=== PATIENT | female | born 1960 ===

== ENCOUNTER 2025-04-24 09:56 | Outpatient (AMB) | payer BC, SELFPAY ==
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
--- OUTSIDE RECORDS SUMMARY | 2025-04-24 10:25 | XMS_ITS | Encounter Summary ---
Author Organization [facility] Address [address] [place] [address] Care Team Providers Care Blue Prints Trimmer Name Role Phone Bambi Alba Primary Care Provider [phone] Encounter Details Date Type Department Care Team (Late Contact Info) Description 04/19/2025 Orders Only [facility] [address] [place] [address] Loraine Alvarado, QUINTON [address] [place], [place] [id number] Social History Tobacco Use Types Packs/Day Years Used Date Smoking Tobacco: Never Smokeless Tobacco: Never Comments Unknown Sex and Gender Information Value Date Recorded Sex Assigned at Female 09/27/2023 1:14 PM EST Legal Sex Female 1:28 PM EDT Gender Identity Not on file Sexual Orientation Heterosexual (straight) 09/27 1:14 PM EST documented as of this encounter Plan of Treatment Upcoming Encounters Date Type Department Care Team (Late st Contact Info) Description 06/26/2025 7:30 AM EDT Office Visit [facility] [address] [phone] Neo Noriega MD [address] [place] [phone] documented as of this encounter Procedures Procedure Name Priority Date/Time Associated Diagnosis Comments MG JASWINDER- SCREENING IMPLANTS- BILATERAL Routine 04/19/2025 3:32 PM EDT documented in this encounter Results * MG JASWINDER- SCREENING IMPLANTS- BILATERAL (04/19/2025 3:32 PM EDT) Anatomical Region Laterality Modality Other 04/19/2025 3:00 PM EDT 04/19/2025 3:00 PM EDT Narrative 04/23/2025 1:46 PM EDT HISTORY: Patient is 64 years old and is seen for screening. The patient has a history of right needle biopsy in 2021 - benign and right needle biopsy in 2018 - benign. The patient has no personal history of ovarian cancer. The patient has no family history of breast cancer. FILMS COMPARED: The present examination has been compared to prior imaging studies dated 11/18/2021, 11/25/2021, 01/22/2023 and 03/03/2024. JASWINDER STATEMENT: Computer-aided detection was utilized by the radiologist in the interpretation of this examination. 3D tomosynthesis digital mammographic images were obtained using displaced views. 2D digital mammographic image(s) were obtained using non-displaced views. MAMMOGRAM FINDINGS: The breasts are heterogeneously dense, which may obscure small masses. (ACR BIRADS density Category c) * There are bilateral pre-pectoral saline implants. Presence of implants lowers the sensitivity of mammography. There are no suspicious mass, calcifications, or architectural distortion in either breast. IMPRESSION: There is no mammographic evidence of malignancy. Routine follow-up mammogram in 1 year is recommended. The patient will receive a lay summary of the results of this breast imaging exam. Lay summaries for mammography examinations will also identify the patients personal breast tissue composition as required by state law. BIRADS Category 2: Benign Thank you for referring your patient to us, Emerson Nguyen MD [id number] (Electronically Signed - 04/23/2025 13:46) Procedure Note Emerson Nguyen MD - 04/23/2025 HISTORY: Patient is 64 years old and is seen for screening. The patient has a history of right needle biopsy in 2021 - benign andright needle biopsy in 2018 - benign. The patient has no personal historyof ovarian cancer. The patient has no family history of breast cancer. FILMS COMPARED: The present examination has been compared to prior imaging studies dated11/18/2021, 11/25/2021, 01/22/2023 and 03/03/2024. JASWINDER STATEMENT: Computer-aided detection was utilized by the radiologist in theinterpretation of this examination. 3D tomosynthesis digital mammographic images were obtained using displacedviews. 2D digital mammographic image(s) were obtained using non-displacedviews. MAMMOGRAM FINDINGS: The breasts are heterogeneously dense, which may obscure small masses.(ACR BIRADS density Category c) * There are bilateral pre-pectoral saline implants. Presence of implants lowers the sensitivity of mammography. There are nosuspicious mass, calcifications, or architectural distortion in eitherbreast. IMPRESSION: There is no mammographic evidence of malignancy. Routine follow-up mammogram in 1 year is recommended. The patient will receive a lay summary of the results of this breastimaging exam. Lay summaries for mammography examinations will alsoidentify the patients personal breast tissue composition as required bystate law. BIRADS Category 2: Benign Thank you for referring your patient to us, Emerson Nguyen MD [phone] (Electronically Signed - 04/23/2025 13:46) Loraine Alvarado CNM IMG LEGACY PROCEDURES Final Resu lt documented in this encounter Visit Diagnoses Not on filedocumented in this encounter Care Teams Blue Prints Trimmer Relationship Specialty Start Date End Date Bambi Alba PA PCP - General 01/21/23 documented as of this encounter
--- OUTSIDE RECORDS SUMMARY | 2025-04-24 10:25 | XMS_ITS | Encounter Summary ---
Author Organization [facility] Address [address] [place] [address] Care Team Providers Care Porter Bath Name Role Phone Bambi Alba Primary Care Provider Reason for Visit * Reason Onset Date Comments echo results 04/09/2025 Encounter Details Date Type Department Care Team ([facility] st Contact Info) Description 04/09/2025 Telephone [facility] [place] [address] [phone] Sheela Lopez LPN echo results Social History Tobacco Use Types Packs/Day Years Used Date Smoking Tobacco: Never Smokeless Tobacco: Never Alcohol Use Standard Drinks/Week Comments Yes 0 (1 standard drink = 0.6 oz pur e alcohol) Comments Unknown Sex and Gender Information Value Date Recorded Sex Assigned at Not on file Legal Sex Female 6:46 AM EST Gender Identity Not on file Sexual Orientation Not on file documented as of this encounter Progress Notes * Sheela Lopez LPN - 04/09/2025 11:33 AM EDT Patient notified * Charli Alexander MD - 04/09/2025 11:15 AM EDT Let her know echo still shows which is still mild to moderate Heart fxn normal No changes needed Make sure she has f/u ov for later in year Charli Alexander MD [facility] 04/09/2025 11:16 AM EDT Office [phone] * Sheela Loepz LPN - 04/09/2025 10:47 AM EDT Patient called looking for echo results from last week. I see them scanned in Epic. Please advise. documented in this encounter Plan of Treatment Upcoming Encounters Date Type Department Care Team (Late st Contact Info) Description 12/13/2025 1:00 PM EDT Office Visit [facility] [place] [address] [facility] [address] [place] [phone] Charli Alexander MD [address] [facility] [address] [place] [address] documented as of this encounter Visit Diagnoses Not on filedocumented in this encounter Care Teams Porter Bath Relationship Specialty Start Date End Date Bambi Alba PA PCP - General Physician Extrusion Machine Operator 05/05/16 documented as of this encounter
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
--- OUTSIDE RECORDS SUMMARY | 2025-04-24 10:25 | XMS_ITS ---
Author Name [facility] Organization Unknown Results Test Name/Text Value Interpretation Date Range Source Est. average glucose Bld gHb Est-sCnc 6.5 mmol/L 02/24/2025 [facility] HbA1c MFr Bld 5.7 % Above high normal 02/24/2025 - 5.7 [facility] Est. average glucose Bld gHb Est-mCnc 117.0 mg/dL 02/24/2025 [facility] ESR RBC Qn Westrgrn 2.0 mm/h Normal 02/24/2025 - [facility] NonHDLc SerPl-mCnc 144.0 mg/dL (calc) Above high normal 02/24/2025 - 130 [facility] Cholest SerPl-mCnc 219.0 mg/dL Above high normal 02/24/2025 - 200 [facility] HDLc SerPl-mCnc 75.0 mg/dL Normal 02/24/2025 - [facility] EST Trigl SerPl-mCnc 110.0 mg/dL Normal 02/24/2025 - 150 [facility] Cholest/HDLc SerPl 2.9 (calc) Normal 02/24/2025 - 5 [facility] LDLc SerPl Calc-mCnc 122.0 mg/dL (calc) Above high normal 02/24/2025 [facility] CRP SerPl-mCnc 10.2 mg/L Above high normal 02/24/2025 - 8 [facility] Albumin SerPl-mCnc 4.2 g/dL Normal 02/24/2025 3.6 - 5.1 [facility] Creat SerPl-mCnc 0.77 mg/dL Normal 02/24/2025 0.5 - 1.05 [facility] Bilirub SerPl-mCnc 0.6 mg/dL Normal 02/24/2025 0.2 - 1.2 [facility] ALT SerPl-cCnc 14.0 U/L Normal 02/24/2025 6 - 29 [facility] Glucose SerPl-mCnc 134.0 mg/dL Above high normal 02/24/2025 65 - 99 [facility] Sodium SerPl-sCnc 139.0 mmol/L Normal 02/24/2025 135 - 14 6 [facility] Chloride SerPl-sCnc 103.0 mmol/L Normal 02/24/2025 98 - 1 10 [facility] Potassium SerPl-sCnc 4.2 mmol/L Normal 02/24/2025 3.5 - 5 .3 [facility] Globulin Ser Calc-mCnc 2.6 g/dL (calc) Normal 02/24/2025 1.9 - 3.7 [facility] ALP SerPl-cCnc 81.0 U/L Normal 02/24/2025 37 - 153 [facility] Albumin/Glob SerPl 1.6 (calc) Normal 02/24/2025 1 - 2.5 [facility] CO2 SerPl-sCnc 27.0 mmol/L Normal 02/24/2025 20 - 32 [facility] BUN/Creat SerPl SEE NOTE: 02/24/2025 6 - [address] eGFRcr SerPlBld CKD-EPI 2020 87.0 mL/min/1.73m2 Normal 02/24/2025 - [facility] BUN SerPl-mCnc 16.0 mg/dL Normal 02/24/2025 7 - [address] Calcium SerPl-mCnc 9.6 mg/dL Normal 02/24/2025 8.6 - 10.4 [facility] AST SerPl-cCnc 14.0 U/L Normal 02/24/2025 10 - 35 [facility] T Prot SerPl-mCnc 6.8 g/dL Normal 02/24/2025 6.1 - 8.[address] TSH SerPl-aCnc 1.63 mIU/L Normal 02/24/2025 0.4 - 4.[address] Urate SerPl-mCnc 6.3 mg/dL Normal 02/24/2025 2.5 - 7 [facility] 25(OH)D3+25(OH)D2 SerPl-mCnc 50.0 ng/mL Normal 02/24/2025 30 - 100 [facility] C3 SerPl-mCnc 157.0 mg/dL 02/24/2025 83 - [address] dsDNA Ab Ser Ql CHERRY NEGATIVE 02/24/2025 - [facility] Cardiolipin IgG Ser IA-aCnc <2.0 02/24/2025 [facility] CLAY Ser Ql IF NEGATIVE 02/24/2025 - [facility] RF IgG Ser-aCnc <5 02/24/[address] B2 Glycoprot1 IgM Ser-aCnc <2.0 02/24/2025 [facility] CECI SM Ab Ser IA-aCnc <1.0 NEG 02/24/2025 - [facility] C4 SerPl-mCnc 28.0 mg/dL 02/24/2025 15 - 57 [facility] CECI SM+COMPUTER LABORATORY TECHNICIAN Ab Ser IA-aCnc <1.0 NEG 02/24/2025 - [facility] B2 Glycoprot1 IgG Ser-aCnc <2.0 02/24/2025 [facility] CECI COMPUTER LABORATORY TECHNICIAN Ab Ser-aCnc <1.0 NEG 02/24/2025 - [facility] Nucleosome Ab Ser IA-aCnc <1.0 NEG 02/24/2025 - [facility] RF IgM Ser-aCnc <5 02/24/[address] RF IgA Ser-aCnc <5 02/24/[address] CECI SS-A Ab Ser IA-aCnc <1.0 NEG 02/24/2025 - [facility] Centromere B Ab Ser-aCnc <1.0 NEG 02/24/2025 - [facility] CECI SS-B Ab Ser IA-aCnc <1.0 NEG 02/24/2025 - [facility] cCP IgG SerPl-aCnc <16 02/24/2025 [facility] B2 Glycoprot1 IgA Ser-aCnc <2.0 02/24/2025 [facility] Cardiolipin IgA Ser IA-aCnc <2.0 02/24/2025 [facility] Mut cit vimentin Ab Ser-aCnc <20 02/24/2025 - 20 [facility] CECI Jo1 Ab Ser IA-aCnc <1.0 NEG 02/24/2025 - [facility] CECI Scl70 Ab Ser IA-aCnc <1.0 NEG 02/24/2025 - [facility] Cardiolipin IgM Ser IA-aCnc <2.0 02/24/2025 [facility] Thyroperoxidase Ab SerPl-aCnc 4.0 IU/mL 02/24/2025 - 9 [facility] RDW RBC Auto 12.4 % Normal 02/24/2025 11 - 15 [facility] Hct VFr Bld Auto 44.1 % Normal 02/24/2025 35 - 45 [facility] Neutrophils # Bld Auto 4414.0 cells/uL Normal 02/24/2025 1500 - 7800 [facility] PMV Bld Abhinav-Trip 10.1 fL Normal 02/24/2025 7.5 - 12.5 [facility] Monocytes # Bld Auto 596.0 cells/uL Normal 02/24/2025 200 - 950 [facility] Hgb Bld-mCnc 14.3 g/dL Normal 02/24/2025 11.7 - 15.5 [facility] Basophils NFr Bld Auto 0.9 % Normal 02/24/2025 [facility] RBC Auto 96.3 fL Normal 02/24/2025 80 - 100 [facility] Lymphocytes NFr Bld Auto 39.9 % Normal 02/24/2025 [facility] RBC # Bld Auto 4.58 Million/uL Normal 02/24/2025 3.8 - 5. 1 [facility] Platelet # Bld Auto 418.0 Thousand/uL Above high normal 02/24/2025 140 - 400 [facility] WBC # Bld Auto 8.9 Thousand/uL Normal 02/24/2025 3.8 - 10 .8 [facility] MCHC RBC Auto-EntMCnc 32.4 g/dL Normal 02/24/2025 32 - 36 [facility] Lymphocytes # Bld Auto 3551.0 cells/uL Normal 02/24/2025 850 - 3900 [facility] MCH RBC Qn Auto 31.2 pg Normal 02/24/2025 27 - [address] [facility] Eosinophil # Bld Auto 258.0 cells/uL Normal 02/24/2025 15 - 500 [facility] Monocytes NFr Bld Auto 6.7 % Normal 02/24/2025 [facility] Eosinophil NFr Bld Auto 2.9 % Normal 02/24/2025 [facility] Neutrophils NFr Bld Auto 49.6 % Normal 02/24/2025 [facility] Basophils # Bld Auto 80.0 cells/uL Normal 02/24/2025 0 - 200 [facility] Insulin resist score Ser Calc.CardioIQ 31.0 Normal 06/02/2024 - [facility] Insulin intact Ser LC/MS/MS-aCnc 9.0 uIU/mL Normal 06/02/2024 - [facility] C peptide SerPl-mCnc 1.73 ng/mL Normal 06/02/2024 0.68 - 2.16 [facility] Est. average glucose Bld gHb Est-mCnc 136.0 mg/dL (calc) Normal 06/02/2024 [facility] HbA1c MFr Bld 6.0 % of total Hgb Above high normal 06/02/2024 - 5.7 [facility] Trigl SerPl-mCnc 112.0 mg/dL Normal 06/02/2024 - 150 [facility] HDLc SerPl-mCnc 57.0 mg/dL Normal 06/02/2024 - [facility] Cholest SerPl-mCnc 201.0 mg/dL Above high normal 06/02/2024 - 200 [facility] NonHDLc SerPl-mCnc 144.0 mg/dL (calc) Above high normal 06/02/2024 - 130 [facility] Cholest/HDLc SerPl 3.5 (calc) Normal 06/02/2024 - 5 [facility] LDLc SerPl Calc-mCnc 122.0 mg/dL (calc) Above high normal 06/02/2024 [facility] BUN SerPl-mCnc 13.0 mg/dL Normal 06/02/2024 7 - [address] Potassium SerPl-sCnc 4.6 mmol/L Normal 06/02/2024 3.5 - 5 .3 [facility] Prot SerPl-mCnc 6.8 g/dL Normal 06/02/2024 6.1 - 8.[address] ALP SerPl-cCnc 78.0 U/L Normal 06/02/2024 37 - 153 [facility] Albumin/Glob SerPl 1.8 (calc) Normal 06/02/2024 1 - 2.5 [facility] Bilirub SerPl-mCnc 0.6 mg/dL Normal 06/02/2024 0.2 - 1.2 [facility] Creat SerPl-mCnc 0.78 mg/dL Normal 06/02/2024 0.5 - 1.05 [facility] ALT SerPl-cCnc 16.0 U/L Normal 06/02/2024 6 - 29 [facility] Glucose SerPl-mCnc 93.0 mg/dL Normal 06/02/2024 65 - 99 [facility] eGFRcr SerPlBld CKD-EPI 2020 86.0 mL/min/1.73m2 Normal 06/02/2024 - [facility] CO2 SerPl-sCnc 31.0 mmol/L Normal 06/02/2024 20 - 32 [facility] Albumin SerPl-mCnc 4.4 g/dL Normal 06/02/2024 3.6 - 5.1 [facility] Sodium SerPl-sCnc 141.0 mmol/L Normal 06/02/2024 135 - 14 6 [facility] Chloride SerPl-sCnc 102.0 mmol/L Normal 06/02/2024 98 - 1 10 [facility] Calcium SerPl-mCnc 9.7 mg/dL Normal 06/02/2024 8.6 - 10.4 [facility] Globulin Ser Calc-mCnc 2.4 g/dL (calc) Normal 06/02/2024 1.9 - 3.7 [facility] AST SerPl-cCnc 13.0 U/L Normal 06/02/2024 10 - 35 [facility] BUN/Creat SerPl SEE NOTE: Normal 06/02/2024 6 - [address] [facility] History of Medication Use Medication Directions Dispensed Refills Start Date End Date Status methocarbamol 500 mg tablet Take 2 tablets 3 times a day by oral route as needed, for muscle spasm. 01/12/20 25 active Zepbound 5 mg/0.5 mL subcutaneous pen injector Inject 5 mg every week by subcutaneous route. 11/24/19 25 active tirzepatide, weight loss, (Zepbound) 2.5 mg/0.5 mL injection Inject 0.5 mL (2.5 mg total) under the skin every 7 days. 07/10/20 24 active albuterol HFA (PROAIR HFA ; PROVENTIL HFA ; VENTOLIN HFA) 90 mcg/actuation inhaler Inhale 2 puffs into the lungs every 4 (four) hours as needed for wheezing. 06/19/20 24 active buPROPion SR (WELLBUTRIN SR) 150 mg 12 hr tablet TAKE 1 TABLET BY MOUTH TWICE A DAY *PLEASE SCHEDULE A FOLLOW UP FOR FURTHER REFILLS* 03/23/20 24 025 aborted bupropion HCl SR 150 mg tablet,12 hr sustained-release TAKE 1 TABLET BY MOUTH TWICE A DAY *PLEASE SCHEDULE A FOLLOW UP FOR FURTHER REFILLS* 03/23/20 24 active levothyroxine (SYNTHROID, LEVOTHROID) 175 mcg tablet TAKE 1 TABLET BY MOUTH EVERY DAY 03/23/20 24 active Spacer/Aero-Holding Chambers ([place] Jennifer) Misc USE INSTRUCTED 01/24/20 24 024 active budesonide-formoterol (SYMBICORT) 80-4.5 MCG/ACT inhaler Inhale 2 puffs 2 (two) times a day. 01/24/20 24 active budesonide-formoteroL (SYMBICORT) 80-4.5 mcg/actuation inhaler Inhale 2 puffs into the lungs 2 (two) times a day. 01/24/20 active inhalational spacing device inhaler Use as instructed 01/24/20 active famotidine 40 mg tablet Take 1 tablet (40 mg total) by mouth daily. 12/27/19 active famotidine (PEPCID) 40 mg tablet Take 1 tablet (40 mg total) by mouth daily. 12/27/19 active cetirizine 10 mg tablet Take 1 tablet (10 mg total) by mouth daily as needed. 11/05/19 active cetirizine (ZyrTEC) 10 mg tablet Take 1 tablet (10 mg total) by mouth daily as needed. 11/05/19 active cetirizine (ZyrTEC) 10 MG tablet Take 1 tablet (10 mg total) by mouth daily. 11/05/19 active triamcinolone (KENALOG) 0.1 % cream 10/02/19 active predniSONE (DELTASONE) 10 MG tablet Take 4 tablets daily for 3 days followed by 3 tablets daily for 3 days followed by 2 tablets daily for 3 days followed by 1 tablet daily for 3 days then stop. 09/27/19 active doxycycline (ADOXA) 100 MG tablet Take 1 tablet (100 mg total) by mouth every 12 (twelve) hours around the clock. 09/27/19 24 active desonide (DESOWEN) 0.05 % ointment 05/28/20 active tacrolimus (PROTOPIC) 0.1 % ointment 05/28/20 23 active omeprazole 40 mg capsule,delayed release Take 1 capsule (40 mg total) by mouth daily. 11/19/19 active omeprazole (PriLOSEC) [address] capsule Take 1 capsule (40 mg total) by mouth daily. 11/19/19 active azithromycin (ZITHROMAX) 250 MG tablet Take 2 tabs PO on day one and one tabs on days 2-5 #6 09/10/20 active levothyroxine (SYNTHROID, LEVOTHROID) 175 MCG tablet Take 1 tablet (175 mcg total) by mouth. 12/22/19 active clobetasol 0.05 % topical cream Apply to affected areas twice daily, as directed x 1 week only, and only the spot on the cheek 02/19/20 15 active clobetasoL (TEMOVATE) 0.05 % cream Apply to affected areas twice daily, as directed x 1 week only, and only the spot on the cheek 02/19/20 15 active desonide 0.05 % topical ointment Apply to affected areas, as directed, twice daily to cheeks and chin (not to eyelids). 02/07/20 15 active desonide (DESOWEN) 0.05 % ointment Apply to affected areas, as directed, twice daily to cheeks and chin (not to eyelids). 02/07/20 15 active hydrocortisone 2.5 % topical ointment Apply to affected areas, as directed, on face twice daily x 2 weeks. 01/29/20 15 active hydrocortisone 2.5 % ointment Apply to affected areas, as directed, on face twice daily x 2 weeks. 01/29/20 15 active azithromycin 250 mg tablet TAKE 2 TABLETS BY MOUTH TODAY, THEN TAKE 1 TABLET DAILY FOR 4 DAYS DIRECTED 024 completed benzonatate 200 mg capsule TAKE 1 CAPSULE BY MOUTH 3 TIMES A DAY NEEDED. 024 completed fluconazole 150 mg tablet TAKE 1 TABLET BY MOUTH EVERY DAY NEEDED 024 completed prednisone 10 mg tablet TAKE 4 TABLETS DAILY X 3DAYS, 3TABS X 3 DAYS 2 TABS DAILY X 3DAYS THEN 1 TAB DAILY X 3DAYS THEN STOP 024 completed bupropion HCl XL 150 mg 24 hr tablet, extended release TAKE 1 TABLET BY MOUTH EVERY MORNING 023 completed pkkmaebc-rvbewxolo-cu xameth 3.5 mg/mL-10,000 unit/mL-0.1% eye drops INSTILL 1 DROP INTO BOTH EYES TWICE DAILY FOR 10 DAYS 023 completed nppuhhgw-jgkcbtspe-mu drocort 3.5 mg-10,000 unit/mL-1 % ear drops,susp 023 completed Fluzone Quad 2805-9386 (PF) 60 mcg (15 mcg x 4)/0.5 mL IM syringe 022 completed nitrofurantoin macrocrystal 50 mg capsule 022 completed cefuroxime axetil 500 mg tablet 020 completed metronidazole 500 mg tablet 019 completed azelastine 137 mcg (0.1 %) nasal spray aerosol 018 completed buspirone 15 mg tablet 018 completed ciprofloxacin 500 mg tablet 018 completed naproxen 018 completed Synthroid 125 mcg tablet TAKE 1 TABLET BY ORAL ROUTE EVERY DAY 014 completed Zepbound 5 mg/0.5 mL subcutaneous pen injector active azithromycin 250 mg tablet active methocarbamol 500 mg tablet active prednisone 20 mg tablet active Wegovy 0.25 mg/0.5 m L subcutaneous pen injector active albuterol sulfate HFA 90 mcg/actuation aerosol inhaler INHALE 2 PUFFS INTO THE LUNGS EVERY 4 HOURS NEEDED FOR WHEEZE active azithromycin 250 mg tablet TAKE 2 TABLETS BY MOUTH TODAY, THEN TAKE 1 TABLET DAILY FOR 4 DAYS DIRECTED active benzonatate 200 mg capsule TAKE 1 CAPSULE BY MOUTH 3 TIMES A DAY NEEDED. active budesonide-formoterol HFA 80 mcg-4.5 mcg/actuation aerosol inhaler INHALE 2 PUFFS TWICE A DAY active budesonide-formoterol HFA 80 mcg-4.5 mcg/actuation aerosol inhaler INHALE 2 PUFFS TWICE A DAY active ciprofloxacin 500 mg tablet TAKE 1 TABLET BY MOUTH TWICE A DAY FOR 7 DAYS active clobetasol 0.05 % topical cream active doxycycline hyclate 100 mg capsule TAKE 1 CAPSULE BY MOUTH 2 TIMES A DAY FOR 5 DAYS. USE IF NO IMPROVEMENT ON METHYLPREDNISOLONE active doxycycline monohydrate 100 mg tablet TAKE 1 TABLET (100 MG TOTAL) BY MOUTH EVERY 12 (TWELVE) HOURS AROUND THE CLOCK. active Fluarix Quad 9747-0249 (PF) 60 mcg (15 mcg x 4)/0.5 mL IM syringe active GaviLyte-G 236 gram-22.74 gram-6.74 gram-5.86 gram oral solution TAKE 8 OUNCES BY MOUTH DIRECTED. FOLLOW INSTRUCTIONS PROVIDED BY OFFICE active hydroxychloroquine 200 mg tablet active levothyroxine 175 mcg tablet TAKE 1 TABLET BY MOUTH EVERY DAY active methocarbamol 500 mg tablet TAKE 2 TABLETS BY MOUTH 3 TIMES A DAY NEEDED FOR MUSCLE SPASM. active metronidazole 500 mg tablet TAKE 1 TABLET BY MOUTH THREE TIMES A DAY FOR 7 DAYS active mupirocin 2 % topical ointment APPLY TWICE DAILY TO RIGHT THUMB NEEDED active mupirocin 2 % topical ointment APPLY TO AFFECTED AREA(S) TWICE A DAY UNTIL HEALED active neomycin 3.5 mg/g-polymyxin B 10,000 unit/g-dexameth 0.1 % eye oint APPLY QUARTER INCH STRIP TO UPPER AND LOWER EYELIDS EVERY DAY AT NIGHT active neomycin 3.5 mg/g-polymyxin B 10,000 unit/g-dexameth 0.1 % eye oint APPLY QUARTER INCH STRIP TO UPPER AND LOWER EYELIDS EVERY DAY AT NIGHT active rmolwkgb-jzsmqtazi-mi xameth 3.5 mg/mL-10,000 unit/mL-0.1% eye drops INSTILL 1 DROP INTO BOTH EYES TWICE DAILY DIRECTED FOR 14 DAYS active olmesartan 5 mg tablet PLEASE SEE ATTACHED FOR DETAILED DIRECTIONS active olmesartan 5 mg tablet PLEASE SEE ATTACHED FOR DETAILED DIRECTIONS active Justyna Rodriguez [facility] spacer USE INSTRUCTED active Opzelura 1.5 % topical cream Apply TOPICALLY TO eyelid eczema TWICE DAILY until improved THEN NEEDED. active Opzelura 1.5 % topical cream Apply TOPICALLY TO eyelid eczema TWICE DAILY until improved THEN NEEDED. active pilocarpine 5 mg tablet active polyethylene glycol 3350 17 gram oral powder packet Take 17 g by mouth daily. active prednisone 10 mg tablet TAKE 4 TABLETS DAILY X 3DAYS, 3TABS X 3 DAYS 2 TABS DAILY X 3DAYS THEN 1 TAB DAILY X 3DAYS THEN STOP active prednisone 20 mg tablet TAKE 2 TABLETS (40 MG TOTAL) BY MOUTH DAILY. active sulfamethoxazole 800 mg-trimethoprim 160 mg tablet TAKE 1 TABLET BY MOUTH TWICE A DAY active sulfamethoxazole 800 mg-trimethoprim 160 mg tablet TAKE 1 TABLET BY MOUTH TWICE A DAY active tacrolimus 0.1 % topical ointment Apply TO HAND AND breast RASH twice daily FOR one WEEK. active triamcinolone acetonide 0.1 % topical cream MIX WITH CERAVE AND APPLY NECK TO TOES TWICE A DAY FOR TWO WEEKS. active triamcinolone acetonide 0.1 % topical cream MIX WITH CERAVE AND APPLY NECK TO TOES TWICE A DAY FOR TWO WEEKS. active Wegovy 0.25 mg/0.5 mL subcutaneous pen injector Inject by subcutaneous route for 28 days. active Zepbound 2.5 mg/0.5 mL subcutaneous pen injector INJECT 0.5 ML (2.5 MG TOTAL) UNDER THE SKIN EVERY 7 DAYS active Zepbound 2.5 mg/0.5 mL subcutaneous pen injector INJECT 0.5 ML (2.5 MG TOTAL) UNDER THE SKIN EVERY 7 DAYS active Zepbound 5 mg/0.5 mL subcutaneous pen injector INJECT 5 MG SUBCUTANEOUSLY WEEKLY active Zoryve 0.3 % topical foam Apply TOPICALLY TO scalp daily. active Zoryve 0.3 % topical foam Apply TOPICALLY TO scalp daily. active albuterol sulfate HFA 90 mcg/actuation aerosol inhaler albuterol sulfate HFA 90 mcg/actuation aerosol inhaler completed bupropion HCl SR 150 mg tablet,12 hr sustained-release TAKE 1 TABLET BY MOUTH TWICE A DAY TAKE 1 TABLET BY MOUTH TWICE A DAY completed famotidine 40 mg tablet TAKE 1 TABLET (40 MG TOTAL) BY MOUTH EVERY NIGHT AT BEDTIME NEEDED. IN PLACE OF ZANTAC TAKE 1 TABLET (40 MG TOTAL) BY MOUTH EVERY NIGHT AT BEDTIME NEEDED. IN PLACE OF ZANTAC completed fexofenadine-pseudoep hedrine (KESHIA-D) 60-120 mg per 12 hr tablet Take by mouth. active levothyroxine 175 mcg tablet TAKE 1 TABLET BY MOUTH EVERY DAY TAKE 1 TABLET BY MOUTH EVERY DAY completed meloxicam 15 mg tablet meloxicam 15 mg tablet completed zxnjkujx-htlrxdrpu-rk xameth 3.5 mg/mL-10,000 unit/mL-0.1% eye drops INSTILL 1 DROP INTO BOTH EYES TWICE DAILY FOR 10 DAYS INSTILL 1 DROP INTO BOTH EYES TWICE DAILY FOR 10 DAYS completed pantoprazole 40 mg tablet,delayed release pantoprazole 40 mg tablet,delayed release completed polyethylene glycol (MIRALAX) 17 gram packet Take 17 g by mouth daily. active triamcinolone acetonide 0.1 % topical cream triamcinolone acetonide 0.1 % topical cream completed Allergies Allergen Reaction Severity Comment Documented Date Source Status CIPROFLOXACIN RASH 07/10/2024 [facility] acti ve METRONIDAZOLE RASH 07/10/2024 [facility] acti ve CODEINE RASH 08/18/2017 [facility] active MEDICINAL PRODUCT CONTAINING PENICILLIN AND ACTING ANTIBACTERIAL AGENT (PRODUCT) NOT AVAILABLE 10/18/2012 [facility] active SUBSTANCE WITH SULFONAMIDE STRUCTURE AND ANTIBACTERIAL MECHANISM OF ACTION (SUBSTANCE) NOT AVAILABLE 10/18/2012 [facility] act ricky SULFA ANTIBIOTICS RASH/DERMATITI S 01/31/2009 [facility] active CIFENLINE [facility] PENICILLINS RASH/DERMATITI SRASH Fever, very sick [facility] PRODUCT CONTAINING PENICILLIN (PRODUCT) [facility] SULFA (SULFONAMIDE ANTIBIOTICS) RASH [facility] LATEX NOT AVAILABLE [facility] Problems Problem Status Onset Date Problem Type Date of Resoluti on Source Hand, foot and mouth disease active 2023-04-12 [facility]Act [facility] 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 [facility]Act [facility] Severe obesity ([facility] V24, [facility] V28) active 2015-05-22 ProblemAct [facility] OCD (obsessive compulsive disorder) active 2012-12-21 ProblemAct [facility] Hypothyroidism active 2011-07-06 ProblemAct [facility] Cutaneous lupus erythematosus active 2017-08-18 ProblemAct [facility] DDD (degenerative disc disease), cervical active 2017-08-18 ProblemAct [facility] Asthma active 2018-06-13 ProblemAct [facility] Diagnosis unknown active 2024-08-15 ProblemAct [facility] Fibroids active 2018-05-26 ProblemAct [facility] Irritable bowel syndrome with both constipation and diarrhea active 2024-07-10 ProblemAct [facility] Mood disorder ([facility] V24) active 2021-06-23 ProblemAct [facility] Anxiety disorder active 2012-12-21 ProblemAct C [facility] Major depression in remission ([facility] V24) active 2018-06-13 ProblemAct [facility] DDD (degenerative disc disease), lumbosacral active 2017-08-18 ProblemAct [facility] HPV (human papilloma virus) infection active 2021-09-01 ProblemAct [facility] Basil's thyroiditis active 2018-05-26 ProblemAct [facility] Amenorrhea active 2018-06-13 ProblemAct [facility] Gastroesophageal reflux disease active 2019-06-20 ProblemAct [facility] Asplenia active 2018-05-26 ProblemAct [facility] Osteopenia of lumbar spine active 2018-05-26 ProblemAct [facility] Primary osteoarthritis involving multiple joints active 2017-08-[address] [facility] Pyelonephritis active 2018-05-26 ProblemAct [facility] Hand foot and mouth disease active 2023-04-12 ProblemAct [facility] Asplenia active 2018-05-26 ProblemAct [facility] 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 ProblemAct [facility] Human papilloma virus infection active 2021-09-01 ProblemAct [facility] Generalized osteoarthritis active 2017-08-18 ProblemAct [facility] Osteopenia active 2018-05-26 ProblemAct [facility] Coronary arteriosclerosis excluded active 2018-11-24 ProblemAct [facility] Mood disorder active 2021-06-23 ProblemAct [facility] Pyelonephritis active 2018-05-26 ProblemAct [facility] Amenorrhea active 2018-06-13 ProblemAct [facility] Degeneration of lumbosacral intervertebral disc active 2017-08-18 ProblemAct [facility] Severe obesity active 2018-05-26 ProblemAct [facility] Asthma active 2018-06-13 ProblemAct [facility] History of procedure active 2018-05-26 ProblemAct [facility] Type 2 diabetes mellitus active 2025-03-02 ProblemAct [facility] History of splenectomy active 2024-05-15 ProblemAct [facility] Leiomyoma active 2018-05-26 ProblemAct [facility] Major depression in remission active 2018-06-13 ProblemAct [facility] Anxiety disorder active 2012-12-21 ProblemAct C [facility] Hypothyroidism active 2018-06-13 ProblemAct [facility] Attention deficit hyperactivity disorder, 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-31 ProblemAct [facility] Gastroesophageal reflux disease active 2019-06-20 ProblemAct [facility] Obsessive-compulsive disorder active 2012-12-21 ProblemAct [facility] Asthma active ProblemAct [facility] Depressive disorder active ProblemAct [facility] Amenorrhea active ProblemAct [facility] Lupus erythematosus active ProblemAct [facility] Hypothyroidism active ProblemAct [facility] Hernia of abdominal cavity active 2022-09-29 ProblemAct [facility] Moderate persistent asthma without complication active 2024-01-[address] [facility] [address] of the chest active 2023-06-09 ProblemAct [facility] Pulmonary nodule active 2023-06-09 ProblemAct [facility] Immunizations Vaccine Date Source Lot Number Status tetanus toxoid, reduced diph theria toxoid, and acellular pertussis vaccine, adsorbed 05/26/2022 [facility] [id number] completed Influenza, injectable, quadr ivalent, preservative free 06/11/2021 [facility] [id number] completed Pfizer SARS-CoV-2 COVID-19, mRNA, LNP-S, preservative free 06/11/2021 [facility] completed COVID-19, mRNA, LNP-S, PF, 3 0 mcg/0.3 mL dose [facility] SARS-COV-2 (COVID-19) vaccin e, mRNA, spike protein, LNP, preservative free, 30 mcg/0.3mL dose 12/15/2020 [facility] [id number] completed COVID-19, mRNA, LNP-S, PF, 3 mcg/0.2 mL dose, juan-sucrose [facility]/2020 [facility] SARS-COV-2 (COVID-19) vaccin e, mRNA, spike protein, LNP, preservative free, 30 mcg/0.3mL dose 11/22/2020 [facility] [id number] completed COVID-19, mRNA, LNP-S, PF, 3 0 mcg/0.3 mL dose 11/18/2020 [facility] completed Influenza, injectable, quadr ivalent, preservative free 05/29/2020 [facility] [id number] completed Influenza, injectable, quadr ivalent, preservative free 06/19/2019 [facility] [id number] completed Influenza, injectable, quadr ivalent, preservative free 06/13/2018 [facility] [id number] completed Influenza, injectable, quadr ivalent, preservative free 08/18/2017 [facility] [id number] completed influenza, seasonal, injectable 06/07/2014 [facility] completed pneumococcal polysaccharide vaccine, 23 valent 06/07/2014 [facility] completed pneumococcal polysaccharide vaccine, 23 valent 09/20/2013 [facility] completed influenza, seasonal, injectable 08/16/2012 [facility] completed influenza, seasonal, injectable 06/30/2011 [facility] [id number] completed pneumococcal polysaccharide vaccine, 23 valent 06/30/2011 [facility] [id number] completed tetanus toxoid, reduced diph theria toxoid, and acellular pertussis vaccine, adsorbed 06/30/2011 [facility] [id number] completed meningococcal polysaccharide (groups A, C, Y and W-135) diphtheria toxoid conjugate vaccine (MCV4P) 01/31/2009 IRASEMA [id number] completed Encounters Encounter Type Encounter Reason Primary Diagnosis Location Date Ambulatory [facility] 04/19/2025 Ambulatory Encntr for specimen preparation assistant exam (general) (routine) w/o abn findings Encntr for specimen preparation assistant exam (general) (routine) w/o abn findings [facility] 04/16/2025 Ambulatory [facility] 04/08/2025 Ambulatory [facility] 04/03/2025 Ambulatory Pure hypercholesterolemia, unspecified Pure hypercholesterolemia , unspecified [facility] 03/30/2025 Ambulatory [facility] 02[facility]22[facility] [facility] 02/15/2025 Ambulatory Personal history of oth diseases of the female genital tract Personal history of oth diseases of the female genital tract [facility] 01/16/2025 Ambulatory [facility] 01/12/2025 Ambulatory [facility] 01/11/2025 Ambulatory [facility] 01/09/2025 Ambulatory [facility] 01/05/2025 Ambulatory Pure hypercholesterolemia, unspecified Pure hypercholesterolemia , unspecified [facility] 12/14/2024 Ambulatory [facility] 12/09/2024 Ambulatory [facility] 2024 Ambulatory Cervical high risk HPV DNA test positive Cervical high risk HPV DNA test positive [facility], [facility] 07/04/2024 Ambulatory Moderate persistent asthma, uncomplicated Moderate persistent asthma, uncomplicated [employer] 01/24/2024 Ambulatory Encntr for specimen preparation assistant exam (general) (routine) w/o abn findings Encntr for specimen preparation assistant exam (general) (routine) w/o abn findings [facility], [facility] 11/15/2023 Ambulatory Bronchitis, not specified as acute or chronic Bronchitis, not specified as acute or chronic [employer] 10/18/2023 Ambulatory Encntr for specimen preparation assistant exam (general) (routine) w abnormal findings [facility], [facility] 10/05/2023 Ambulatory [place] [facility] 09/27/2023 Ambulatory [facility] 09/27/2023 Ambulatory Solitary pulmonary nodule Solitary pulmonary nodule [facility] 09/27/2023 Ambulatory Solitary pulmonary nodule Solitary pulmonary nodule [facility] 06/08/2023 Ambulatory [facility], [facility] 09/29/2022 Ambulatory [facility] 04/28/2022 Ambulatory [facility], [facility] 11/10/2021 Ambulatory Contact with and (suspected) exposure to covid-19 [facility] 10/04/2021 Ambulatory [facility], [facility] 08/12/2021 Care Team Organization Name Specialty Phone Email Start Date End Da te [facility] 12/19/2024 [facility] 12/14/2024 [facility] 11/29/2024 [facility] Le[facility] 01/12/2024 [facility] Le[facility] 01/12/2024 [place] [facility] LEANN MILLER Primary [facility] 06/08/[address] [place] [address] [facility] 04/19/2023 04/19/2023 [facility], [facility] 04/30/2022 [place] [facility] PCP,No Primary Care 10/04/2021 12/06/2024 [place] [facility] NO PCP Primary Care 10/04/2021 10/04/2021 [facility], [facility] 08/12/2021 04/28[facility]2022 [facility] 06/06/2021 0 05/08/2024
--- OUTSIDE RECORDS SUMMARY | 2025-04-24 10:25 | XMS_ITS | Clinical Summary ---
Author Organization [facility] Address [address] [place] [address] Care Team Providers Care District Wire Chief Name Role Phone Nelly Trujillo Primary Care Provider Un available Allergies Active Allergy Reactions Criticality Noted Date Comments Penicillins 03/07/2021 Sulfa Antibiotics 03/07/2021 Medications Neomycin-Polymy reuben-HC (CORTISPORIN) 3.5-38175-3 otic suspension INSTILL 4 DROPS IN AFFECTED EAR(S) 2-3 TIMES DAILY. 1 1 03/07/2021 Active Active Problems Problem Noted Date Diagnosed Date Acute otitis externa of left ear, unspecified ty pe 03/07/2021 Impacted cerumen of left ear 03/07/2021 Social History Tobacco Use Types Packs/Day Years Used Date Smoking Tobacco: Never Assessed Comments Unknown Sex and Gender Information Value Date Recorded Sex Assigned at Not on file Legal Sex Female 8:22 PM EDT Gender Identity Not on file Sexual Orientation Not on file Plan of Treatment Health Maintenance Due Date Last Done Comments Hepatitis C Screening 1962 Pap Smear 1978 DTaP/Tdap/Td (1 - Tdap) 1980 Mammogram/Breast Imaging 2002 Colon Cancer Screening 2007 Pneumococcal 50+ years (1 of 1 - PCV) 2012 Zoster (Shingrix) (1 of 2) 2012 COVID-19 Vaccine ( - 2023-2 5 season) 2024 Influenza (#1) 2025 RSV (1 - 1-dose 75+ series) 2037 HPV Vaccine (No Doses Required) Completed Hep A Aged Out No longer eligi ble based on patient's age to complete this topic Hep B Aged Out No longer eligi ble based on patient's age to complete this topic Hib Aged Out No longer eligi ble based on patient's age to complete this topic Meningococcal ACWY Aged Out No longer eligible based on patient's age to complete this topic Zoster (Zostavax) Discontinued Care Teams District Wire Chief Relationship Specialty Start Date End Date Nelly Trujillo PCP - General 04/26/23
[2025-04-24 10:41] VITALS: BP 130/80; PULSE 68; O2SAT 96; BMI 44.5
== END 2025-04-24 12:31 | disposition home or self-care (01) ==
PROVIDERS: PCP Physician Assistant Medical; Visit Provider Internal Medicine Rheumatology
DX: M79.641 Pain in right hand (principal); M79.642 Pain in left hand; R21 Rash and other nonspecific skin eruption; L93.2 Other local lupus erythematosus; M25.561 Pain in right knee; M25.562 Pain in left knee; L40.9 Psoriasis, unspecified
CPT/HCPCS: 99205